=== PATIENT | female | born 1970 ===

== ENCOUNTER 2020-10-31 12:31 | Emergency (ER) | payer SELFPAY ==
[~2020-10-31] VITALS: Ht 152.4 cm; Wt 51.1 kg
--- NOTE | 2020-10-31 14:32 | NUR ---
[id number]
[2020-10-31 14:42] VITALS: BP 134/102
== END 2020-10-31 17:05 | disposition left against medical advice (07) ==
LOC: ED 16:00
DX: F41.9 Anxiety disorder, unspecified (principal); Z76.0 Encounter for issue of repeat prescription
CPT/HCPCS: 99281